=== PATIENT | male | born 1955 | race Two or more races ===

== ENCOUNTER 2017-09-07 15:55 | Emergency (ER) | payer MEDICARE ==
[2017-09-07] MEDS ORDERED: Lidocaine 1% 20 ML MDV ONE (16:04)
[2017-09-07] MEDS ORDERED: Adacel (T-DAP) 0.5 ML VIAL ONE (16:09)
[2017-09-07] MEDS ORDERED: Bacitracin Zinc 1 Packet ONE (16:25)
== END 2017-09-07 17:00 | disposition home or self-care (01) ==
LOC: SCSER 15:55
DX: S61.214A Laceration without foreign body of right ring finger without damage to nail, initial encounter (principal); E11.9 Type 2 diabetes mellitus without complications; I10 Essential (primary) hypertension; K21.9 Gastro-esophageal reflux disease without esophagitis; Z79.84 Long term (current) use of oral hypoglycemic drugs; Z79.899 Other long term (current) drug therapy; W25.XXXA Contact with sharp glass, initial encounter
CPT/HCPCS: 12002; 90471; 90715; J2001

== ENCOUNTER 2017-09-18 15:57 | Emergency (ER) | payer MEDICARE | END 2017-09-18 16:17 | disposition home or self-care (01) | LOC: SCSER 15:57 | DX: S61.214D Laceration without foreign body of right ring finger without damage to nail, subsequent encounter (principal); K21.9 Gastro-esophageal reflux disease without esophagitis; I10 Essential (primary) hypertension; Z79.899 Other long term (current) drug therapy; Z79.84 Long term (current) use of oral hypoglycemic drugs ==

== ENCOUNTER 2020-09-04 16:02 | Outpatient (CLI) | payer MEDICARE | END 2020-09-04 16:03 | disposition home or self-care (01) | LOC: BICRAD 16:02 | PROVIDERS: ATTEND Family Medicine | DX: M54.6 Pain in thoracic spine (principal); G89.29 Other chronic pain; M47.816 Spondylosis without myelopathy or radiculopathy, lumbar region | CPT/HCPCS: 72070; 72100 ==

== ENCOUNTER 2021-04-04 15:22 | Outpatient (CLI) | payer MEDICARE | END 2021-04-04 15:23 | disposition home or self-care (01) | LOC: DTY/OP 15:22 | PROVIDERS: ATTEND Surgery | DX: E11.9 Type 2 diabetes mellitus without complications (principal); E66.01 Morbid (severe) obesity due to excess calories | CPT/HCPCS: 97802 ==